=== PATIENT | male | born 1960 | race Caucasian/White ===

== ENCOUNTER 2018-03-23 18:53 | Emergency (ER) | payer OTHER ==
[~2018-03-23] VITALS: Ht 157.5 cm; Wt 64.4 kg
[2018-03-23] MEDS ORDERED: LISINOPRIL20 MG PO (19:02)
[2018-03-23] MEDS ORDERED: CLONIDINE0.1 PO (19:03)
[2018-03-23] MEDS ORDERED: TRAZODONE HCL50 MG PO (19:04)
[2018-03-23 19:50] LABS: ABSOLUTE EOSINOPHILS 0.1 thou/uL (0.0-0.7); ABSOLUTE LYMPHOCYTES 1.2 thou/uL (0.8-5.3); ABSOLUTE MONOCYTES 0.5 thou/uL (0.0-1.2); ABSOLUTE NEUTROPHILS 3.4 thou/uL (1.6-8.1); BASOPHILS 0.7 %; EOSINOPHILS 1.8 %; HEMATOCRIT 46.2 % (42.0-52.0); HEMOGLOBIN 16.6 gm/dL (14.0-18.0); MCH 33.5 pg (26.0-34.0); MCHC 35.8 g/dL (28.0-37.0); MCV 93.5 fL (80.0-100.0); MONOCYTES 9.4 %; MPV 10.2 fl. (7.2-11.1); NUCLEATED RBCS 0 /100WBC; PLATELET COUNT* 88 thou/uL (150-400); POLYS 65.1 %; RBC 4.94 mil/uL (4.50-6.00); WBC 5.2 thou/uL (4.0-11.0)
[2018-03-23 19:53] LABS: CREATININE 0.9 mg/dL (0.6-1.3); POTASSIUM 3.8 mmol/L (3.5-5.1)
[2018-03-23 19:58] LABS: ALBUMIN 4.1 g/dL (3.4-5.0); TOTAL BILIRUBIN 0.6 mg/dL (<0.1-1.0); TOTAL PROTEIN 7.7 g/dL (6.4-8.2)
[2018-03-23 21:03] LABS: URINE BILIRUBIN NEGATIVE (Negative); URINE BLOOD NEGATIVE (Negative); URINE CLARITY CLEAR; URINE COLOR STRAW; URINE GLUCOSE-RANDOM NEGATIVE (Negative); URINE KETONES NEGATIVE (Negative); URINE LEUKOCYTES-REFLEX NEGATIVE (Negative); URINE NITRITE-REFLEX NEGATIVE (Negative); URINE PROTEIN NEGATIVE (Negative); URINE SPECIFIC GRAVITY <= 1.005 (1.005-1.030); URINE UROBILINOGEN 0.2 E.U./dl (0.2-1.0)
[2018-03-23] MEDS ORDERED: LISINOPRIL-HCT1 EAC1 PO (21:06)
[2018-03-23 21:23] VITALS: BP 141/94
--- NOTE | 2018-03-24 09:39 | EKG ---
[place] [address] ELECTROCARDIOGRAM REPORT Name: HEIDYMOHIT Room: [facility]#: [id number] Admission: 03/23/18 Attend Phys: Discharge: 03/23/18 Date of : 56 Report #: [id number] THIS REPORT FOR: //name// [facility] ED Test Date: 2018-03-23 Test Time: 19:53:47 Pat Name: MOHIT MOODY Department: Room: Gender: Counter Maker: Uyen ARAIZA : 1960 Requested By: Sabrina Stanley Order Number: [id number] MD: Mohit Pastor Measurements Intervals Dailey Rate: 82 P: 9 WY: 159 QRS: -10 QRSD: 98 T: 6 QT: 366 QTc: 428 Interpretive Statements Sinus rhythm Borderline ST elevation, anterior leads, consider early repolarization No previous ECG available for comparison Electronically Signed On 03-24-2018 9:39:07 CDT by Mohit Pastor [email or web address] <ELECTRONICALLY SIGNED> By: Mohit Pastor MD, [facility] 03/24/1839 52 52 Mohit Pastor MD, FACC /EPI
== END 2018-03-23 21:23 | disposition home or self-care (01) ==
LOC: M.ERS 18:53
PROVIDERS: Nurse Practitioner Family
DX: I10 Essential (primary) hypertension (principal)

== ENCOUNTER → 2019-02-08 | Outpatient (CLI) | payer OTHER ==
[~2019-02-08] MED LIST: CLONIDINE0.1 PO; LISINOPRIL-HCT1 EAC1 PO; LISINOPRIL20 MG PO; TRAZODONE HCL50 MG PO
== END ==
LOC: M.ULTRA 07:56
DX: R10.11 Right upper quadrant pain (principal)

== ENCOUNTER → 2019-08-20 | Outpatient (CLI) | payer OTHER | LOC: M.ULTRA 08-19 13:00 | DX: I65.23 Occlusion and stenosis of bilateral carotid arteries (principal) ==